=== PATIENT | female | born 1990 | race Hispanic/Latino ===

== ENCOUNTER 2020-12-17 10:24 | Emergency (ER) | payer OTHER ==
[~2020-12-17] VITALS: Ht 157.5 cm; Wt 72.6 kg
[2020-12-17 10:26] VITALS: BP 114/73
[2020-12-17] MEDS ORDERED: TETANUS/DIPHTHERIA TOXOID [ADULT] 0.5 ML VIAL IM ONE (11:30)
[2020-12-17 11:46] VITALS: BP 122/68
[2020-12-18 07:15] LABS: HEPATITIS B CORE IGM Negative (Negative)
== END 2020-12-17 11:48 | disposition home or self-care (01) ==
LOC: EDH 10:24
DX: S61.230A Puncture wound without foreign body of right index finger without damage to nail, initial encounter (principal); W46.0XXA Contact with hypodermic needle, initial encounter; Y93.89 Activity, other specified; Y92.89 Other specified places as the place of occurrence of the external cause; Y99.8 Other external cause status
CPT/HCPCS: 36415; 86701; 86705; 86706; 86804; 87390; 87522; 90471; 90714